=== PATIENT | male | born 1980 | race Caucasian/White ===

== ENCOUNTER 2023-08-07 17:06 | Emergency (ER) | payer OTHER, SELFPAY ==
[2023-08-07 17:26] VITALS: BP 141/84; PULSE 69; RESP 18; TEMP 36.4; O2SAT 98
--- NOTE | 2023-08-07 17:49 | ED.SKABFB ---
HPI - Skin/Abscess/Foreign Bdy General Chief complaint: Skin/Abscess/Foreign Body Stated complaint: rash Time Seen by Provider: 08/07/23 17:49 Source: patient Mode of arrival: ambulatory Limitations: no limitations History of Present Illness HPI narrative: 43-year-old male presented for complaint of red bumps to the torso and upper arms over the past 2-3 days. He states this started after cleaning out the hot tub. He states he has had similar symptoms in the past also after cleaning the hot tub, diagnosed with folliculitis at that time. Denies pain, itching, or drainage. Denies any other sites of rash. Denies lip, tongue, or throat swelling, shortness of breath or wheezing. Denies changes to soap, detergent, lotion, or any other exposures. No one else in the house or any contacts with similar symptoms. Related Data Allergies Allergy/AdvReac Type Severity Reaction Status Date / Time No Known Allergies Allergy Verified 08/07/23 17:45 Review of Systems Review of Systems: CONSTITUTIONAL: Denies body aches, fever, chills, or sweats. EYES: Denies visual changes, redness, or discharge. ENT: Denies rhinorrhea, congestion CARDIOVASCULAR: Denies chest pain, palpitations, or edema. RESPIRATORY: Denies cough or dyspnea. GASTROINTESTINAL: Denies abdominal pain, nausea, vomiting, or diarrhea. SKIN: per HPI MUSCULOSKELETAL: Denies back pain, joint pain, or myalgia. NEUROLOGIC: Denies headache, numbness, tingling, or weakness. [facility] Past Medical History Medical History (Updated 08/07/23 @ 17:56 by Kezia Lucas, ALIYA) No pertinent past medical history Comments At time of signature, I have reviewed and agree with nursing past medical, surgical, social and family history unless otherwise noted. Please see nursing chart for further information. There is no relevant family history pertinent to the presenting complaint Exam Narrative: GENERAL: Well-appearing HEAD: Normocephalic, atraumatic. EYES: conjunctivae clear, and EOMI. ENT: Mucous membranes moist. Oropharynx without edema, erythema or lesions. NECK: Supple. No lymphadenopathy CHEST: Clear to auscultation. HEART: Regular rate and rhythm. SKIN: Warm, dry. Bilateral aspects of torso scattered with erythematous papules and pustules c/w folliculitis. Few scattered lesions to bilateral medial upper arms. NEURO: Alert and oriented x3. Course Course Emergency Course: Patient is aware of diagnosis, understands and agrees to treatment plan. Anticipatory guidance given. Patient agrees to follow-up as directed and is aware of reasons to seek care at the emergency department. Portions of this record may have been created with voice recognition software Level of Care: Express Care Visit Vital Signs Vital signs: Vital Signs Temperature 97.6 F 08/07/23 17:26 Pulse Rate 69 08/07/23 17:26 Respiratory Rate 18 08/07/23 17:26 Blood Pressure 141/84 H 08/07/23 17:26 Pulse Oximetry 98 08/07/23 17:26 Oxygen Delivery Room Air 08/07/23 17:26 Temperature 97.6 F 08/07/23 17:26 Pulse Rate 69 08/07/23 17:26 Respiratory Rate 18 08/07/23 17:26 Blood Pressure 141/84 H 08/07/23 17:26 Pulse Oximetry 98 08/07/23 17:26 Oxygen Delivery Room Air 08/07/23 17:26 Reviewed MDM - Skin/Abscess/Foreign Bdy MDM Narrative Medical decision making narrative: Discussed physical exam findings. Advised supportive measures and signs/symptoms to go to the ER. Pt is appropriate for outpt treatment and f/u. Instructed patient to go to nearest ER immediately for any worsening symptoms including but not limited to: fever, spreading rash, pain, sore throat, headache, dizziness, chest pain, trouble breathing, or any symptoms concerning to the patient. Differential Diagnosis Differential diagnosis: Likely abscess of skin or subcutaneous tissue, viral exanthem, dermatophytosis, urticaria, herpes zoster, allergic reaction to drug, cellulitis, eczema, insect b
== END 2023-08-07 17:58 | disposition home or self-care (01) ==
PROVIDERS: Emergency Provider Nurse Practitioner Family
DX: L73.9 Follicular disorder, unspecified (principal)
CPT/HCPCS: 99213; G0463